=== PATIENT | male | born 1945 | race Caucasian/White ===

== ENCOUNTER 2016-11-30 10:49 | Inpatient (IN) | payer MEDICARE, OTHER ==
[2016-11-23 15:48] LABS: BASOPHILS 0.7 %; BASOPHILS ABSOLUTE 0.06 10/3/uL (0.0-0.16); EOSINOPHILS 2.6 %; EOSINOPHILS ABSOLUTE 0.21 10/3/uL (0.0-0.53); HEMATOCRIT 42.4 % (40.0-51.0); HEMOGLOBIN 14.5 g/dL (13.6-17.8); IMMATURE GRANULOCYTES 0.2 %; IMMATURE GRANULOCYTES ABSOLUTE 0.02 10/3/uL (0.0-0.11); LYMPHOCYTES ABSOLUTE 2.49 10/3/uL (0.67-4.30); MANUAL DIFF NO %; MEAN CORPUS HGB CONC 34.2 g/dL (32.0-36.0); MEAN CORPUSCULAR HEMOGLOB 31.7 pg (26.0-34.0); MEAN CORPUSCULAR VOLUME 92.6 fL (80-100); MEAN PLATELET VOLUME 10.3 fL (9.2-13.0); MONOCYTES ABSOLUTE 0.72 10/3/uL (0.21-1.20); NEUTROPHILS 56.5 %; NEUTROPHILS ABSOLUTE 4.54 10/3/uL (2.02-8.40); PLATELET COUNT 275 10/3/uL (150-400); RBC DISTRIBUTION WIDTH 13.1 % (12.0-16.0); RED CELL COUNT 4.58 10/6/uL (4.7-6.1)
[2016-11-23 15:50] LABS: BUN (BLOOD UREA NITROGEN) 22 MG/DL (6-23); CHLORIDE, SERUM 105 MMOL/L (96-112); CO2 (CARBON DIOXIDE) 26 MMOL/L (24-34); CREATININE 1.14 MG/DL (0.70-1.30); GFR AFRICAN AMERICAN 75 ML/MIN (>=60); GFR NON AFRICAN AMERICAN 65 ML/MIN (>=60); GLUCOSE, SERUM 86 MG/DL (60-99); POTASSIUM, SERUM 4.8 MMOL/L (3.5-5.3); SODIUM, SERUM 138 MMOL/L (135-148)
[2016-11-23 18:11] LABS: ASCORBIC ACID (UR NOT ORDER) NEG (NEG); BILIRUBIN, URINE NEGATIVE (NEG); KETONE, URINE NEGATIVE (NEG); LEUKOCYTE ESTERASE(NOT OR NEG (NEG); WBC (NOT ORDERED) (RFLEX) < 1 (0-5)
--- NOTE | ~2016-11-30 | OP ---
Record Of Operation [facility] [address] [place]. [address] NAME: CHAPIS BECKETT : 47 STATUS : DIS IN PAT#: [id number] AGE: 71 ADM/REG DATE : 11/30/16 MR#: [id number] REPORT SERV DATE: 12/08/16 DICTATED BY: CHRISTIANA MIRANDACARTER NATION DATE: 12/08/16 REPORT STATUS : Draft TRANSCRIBED BY: MODL DATE: 12/08/16 DATE OF PROCEDURE: 11/30/2016 [facility] [employer] MEMBER: Dr. Calderon. PREOPERATIVE DIAGNOSIS: Rapidly expanding infrarenal abdominal aortic aneurysm. POSTOPERATIVE DIAGNOSIS: Rapidly expanding infrarenal abdominal aortic aneurysm. PROCEDURE: 1. Percutaneous ultrasound-guided sheath insertion in the bilateral common femoral arteries. 2. Abdominal aortogram. 3. Percutaneous endovascular repair of abdominal aortic aneurysm using a modular endograft with one docking limb. ANESTHESIA: General. IV FLUIDS: 1000 mL. ESTIMATED BLOOD LOSS: 50 mL. CONTRAST: 41. BRIEF HISTORY: Mr. Beckett is a 71-year-old gentleman who has had a previously diagnosed aortic aneurysm. He has had rapid expansion over the past six months. He was recommended to undergo repair. DETAILS OF PROCEDURE: He was taken to the operating room and placed in supine position. General anesthesia was achieved. Protective padding was placed. We then prepped and draped in a sterile fashion. We used ultrasound to obtain access of both common femoral arteries and placed a ProGlide device on the left side and two ProGlide devices on the right side. We then inserted an 11-German sheath. We then passed a catheter into the abdominal aorta. Aortogram demonstrates a patent renal vessels. 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 The iliacs are nonaneurysmal. We then passed the main body of the aortic stent graft from the right side to just below the renal arteries and deployed this with the ipsilateral limb extending down into the right common iliac artery. We then cannulated the contralateral gate coming from the left side and deployed the contralateral limb in the gate down into the left common iliac. We then ballooned all the attachment sites with a Reliant balloon. Completion demonstrates a good placement of the stent graft. There is a faint type 2 endoleak identified, but there was no type 1 or type 3 leak. Good flow was seen through the graft. We then removed all the wires and catheters and closed percutaneously. At the end of the procedure, the patient was stable. He had tolerated it well. Record Of Operation [place] [id number] [address] [place]. [address] NAME: CHAPIS BECKETT : 47 STATUS : DIS IN PAT#: [id number] AGE: 71 ADM/REG DATE : 11/30/16 MR#: [id number] REPORT SERV DATE: 12/08/16 DICTATED BY: CARTER VILLEDA II DATE: 12/08/16 REPORT STATUS : Draft TRANSCRIBED BY: MODL DATE: 12/08/16 LS/LILIANA Carter Villeda II, M.D. / [id number] CC: Mimi Pierre II, M.D.
[~2016-11-30 10:49] MED LIST: ASAB PO; CENTRUM SILVER MEN PO; GLUCCHONDR PO; JUICE PLUS FRUIT PO; PRIN20 PO; VITAMIN B-122500 MCG SL; ZOCOR40 PO; [UNRECOGNIZED DRUG - OTHER] PO
[2016-12-01 05:32] LABS: BASOPHILS 0.1 %; BASOPHILS ABSOLUTE 0.01 10/3/uL (0.0-0.16); EOSINOPHILS 0.1 %; EOSINOPHILS ABSOLUTE 0.01 10/3/uL (0.0-0.53); HEMATOCRIT 39.7 % (40.0-51.0); HEMOGLOBIN 13.7 g/dL (13.6-17.8); IMMATURE GRANULOCYTES 0.3 %; IMMATURE GRANULOCYTES ABSOLUTE 0.04 10/3/uL (0.0-0.11); LYMPHOCYTES 12.1 %; MEAN CORPUS HGB CONC 34.5 g/dL (32.0-36.0); MEAN CORPUSCULAR HEMOGLOB 31.6 pg (26.0-34.0); MEAN CORPUSCULAR VOLUME 91.7 fL (80-100); MEAN PLATELET VOLUME 9.9 fL (9.2-13.0); MONOCYTES 7.7 %; MONOCYTES ABSOLUTE 1.08 10/3/uL (0.21-1.20); NEUTROPHILS 79.7 %; PLATELET COUNT 229 10/3/uL (150-400); RBC DISTRIBUTION WIDTH 13.4 % (12.0-16.0); RED CELL COUNT 4.33 10/6/uL (4.7-6.1)
[2016-12-01 05:33] LABS: MANUAL DIFF NO %
[2016-12-01 05:45] LABS: BUN (BLOOD UREA NITROGEN) 21 MG/DL (6-23); CALCIUM, SERUM 8.7 MG/DL (8.5-10.4); CHLORIDE, SERUM 103 MMOL/L (96-112); CO2 (CARBON DIOXIDE) 26 MMOL/L (24-34); CREATININE 1.24 MG/DL (0.70-1.30); GFR AFRICAN AMERICAN 68 ML/MIN (>=60); GFR NON AFRICAN AMERICAN 59 ML/MIN (>=60); POTASSIUM, SERUM 4.6 MMOL/L (3.5-5.3); SODIUM, SERUM 139 MMOL/L (135-148)
[2016-12-01 05:49] LABS: GLUCOSE, SERUM 123 MG/DL (60-99)
== END 2016-12-01 20:52 | disposition home or self-care (01) | DRG 269 ==
LOC: SDC 10:49 → 2SO 18:13
PROVIDERS: Surgery
PROC: B41D1ZZ Fluoroscopy of Aorta and Bilateral Lower Extremity Arteries using Low Osmolar Contrast (ICD-10-PCS; 2016-11-30)
PROC: 04V03EZ Restriction of Abdominal Aorta with Branched or Fenestrated Intraluminal Device, One or Two Arteries, Percutaneous Approach (ICD-10-PCS; principal; 2016-11-30 12:45)
DX: I71.4 Abdominal aortic aneurysm, without rupture (principal); I10 Essential (primary) hypertension
CPT/HCPCS: 34802; 36200; 71020; 75952; 80048; 81001; 85025; 87641; 93005; 97161-GP; A9270-GY; C1725; C1760; C1769; C1876; C1894; G8978-CI-GP; G8979-CI-GP; G8980-CI-GP; J0690; J2250; J2370; J2405; J2710; J2720; J3010; J3370; Q9966